=== PATIENT | male | born 1955 | race Caucasian/White ===

== ENCOUNTER 2025-05-25 11:56 | Emergency (ER) | payer MEDICARE, MEDICAID, SELFPAY ==
--- NOTE | 2025-05-25 11:45 | RT.EKG_ITS ---
APPROVED REPORT Exam: Resting ECG Reason for Exam: SOB Patient Location: E HR:86 bpm ECG Measurements Heart Rate 86 AXIS WI 243 P 73 QRSd 76 QRS 56 QT 343 T 211 QTc 411 Conclusion Sinus rhythm...normal P axis, V-rate 60- 99 Prolonged WI interval...WI >220, V-rate 50- 90 Probable left atrial enlargement...P >50mS, <-0.10mV V1 Abnrm T, consider ischemia, anterolateral lds...T <-0.20mV, I aVL V2-V6 No STEMI
[2025-05-25 11:59] VITALS: PULSE 86; RESP 18; TEMP 36.4; O2SAT 95
--- NOTE | 2025-05-25 12:00 | DI.RAD_ITS ---
Exam(s) XR CHEST 2V PA LATERAL EXAM: XR CHEST 2V PA LATERAL CLINICAL HISTORY: SOB TECHNIQUE: 2D digital imaging was performed. Two views. COMPARISON: No exams were available for comparison FINDINGS: HEART: Normal size. Aorta: Not dilated. PULMONARY VASCULATURE: Normal. MEDIASTINUM: Unremarkable. LUNGS: Basilar atelectasis. PLEURAL SPACE: There are small to moderate-sized bilateral pleural effusions. No pneumothorax. Apical pleural thickening. BONE:Unremarkable for age. SOFT TISSUES: Unremarkable. IMPRESSION: Small to moderate-sized bilateral pleural effusions. DATA REPOSITORY: RADIATION DOSE DELIVERED:
[2025-05-25 13:27] LABS: Abs Immature Grans 0.02 10^3/uL (0.0-0.06); HCT 36.5 % (40.0-50.0); HGB 12.1 g/dL (13.5-17.5); Immature Grans % 0.2 %; MCH 34.2 pg (27.0-33.0); MCHC 33.2 % (32.0-36.0); MCV 103 fL (80-95); MPV 8.5 fL (8.0-11.0); Platelet Count 320 10^3/uL (130-400); RBC 3.54 10^6/uL (4.36-5.78); RDW 15.0 % (11.8-14.1); RDW-SD 57.0 fL; WBC 9.54 10^3/uL (4.4-10.8)
[2025-05-25 13:28] LABS: BE (Venous) 10 mmol/L (-2-3); HCO3 (Venous) 35 mmol/L (23-28); O2 Sat (Venous) 54 %; TCO2 (Venous) 33 mmol/L (24-29); pCO2 (Venous) 57 mmHg (41-51); pO2 (Venous) 31 mmHg
[2025-05-25 13:57] LABS: Magnesium 2.1 mg/dL (1.6-2.6); Troponin I 6 ng/L (<54)
[2025-05-25 13:58] LABS: ALT 20 U/L (10-49); AST 35 U/L (<34); Albumin 4.0 g/dL (3.2-5.0); Alkaline Phosphatase 82 U/L (46-116); Anion Gap 8.2 mmol/L (3-11); BUN 15 mg/dL (9-23); Bilirubin, Total 1.20 mg/dL (0.2-1.2); CO2 32.8 mmol/L (20.0-31.0); Calcium 9.3 mg/dL (8.3-10.6); Chloride 94 mmol/L (98-107); Glucose 90 mg/dL (74-106); Potassium 4.5 mmol/L (3.5-5.1); Sodium 135 mmol/L (136-145); Total Protein 8.3 g/dL (5.7-8.2)
--- NOTE | 2025-05-26 21:00 | ED.GENADUL_ITS ---
Discharge Plan Disposition Patient Disposition: [facility] Condition: Fair Discharge Details Clinical Impression: Generalized weakness, Pleural effusion, bilateral Primary Care Provider: Nadine Gonzalez ED Provider: Bg Boogie Discharge Instructions Instructions: Generalized Weakness, Pleural effusion - Discharge instructions Additional Instructions: If you are unhappy at the rehab facility you may discuss with your social worker health services to find other placement. Today there is no indication for hospitalization. Your lab work is reassuring, and your vital signs are all normal. Please follow-up with your primary care provider regarding your visit to the emergency department today. Be sure to discuss results of all test performed here today to include radiology, and laboratory testing as well as results for any pending cultures. Should your symptoms worsen, or if you develop new concerning symptoms, please return immediately emergency department for further evaluation. Discharge Data Discharge Date/Time-TO BE ENTERED AT DEPARTURE: 05/25/25 15:26 HPI General Date/Time Provider Initiated Documentation: 05/25/25 12:05 . HPI Narrative: MDM/Narrative: Initial Assessment: 70-year-old male with squamous cell carcinoma, basal cell carcinoma, and failure to thrive, presents with generalized weakness and dissatisfaction with current rehab facility. Differential Diagnosis: - Metabolic causes: CMP ordered - Infectious causes: CBC/CXR/UA ordered - ACS: EKG/trop ordered ED Course: - Laboratory workup unremarkable - Chest x-ray shows stable bilateral pleural effusions Final Assessment: Generalized weakness persisting for 1 year. Laboratory workup unremarkable. Chest x-ray shows stable bilateral pleural effusions. No significant abnormality noted on workup. Clinical Impression: - Generalized weakness Disposition: - Discharge: Discharged back to rehab facility - Follow-Up: Follow up with social worker health services at [facility] to discuss possible placement in another facility This document was created with assistance from [employer]. . HPI: The patient is a 70-year-old male with a medical history significant for squamous cell carcinoma, basal cell carcinoma, and failure to thrive. He was recently discharged from [facility] due to failure to thrive and generalized weakness and [facility] The patient presents for evaluation of dyspnea. Although he has no acute complaints today, he expresses a desire for hospital admission. He reports persistent weakness and unintentional weight loss over the past year, with no acute changes noted today. ROS: Negative besides as mentioned above Exam: Vital signs: Reviewed. General Appearance: Cachexia. HEENT: NCAT, EOMI, not icteric. External ears normal. No rhinorrhea. Moist mucous membranes. Neck: Supple, full range of motion, no observable masses, No meningeal sign. Respiratory: No Respiratory distress. No tachypnea. Cardiovascular: RRR, no edema. Gastrointestinal: Abdomen soft and nontender. Skin: Multiple skin lesions over anterior chest and forehead. Neurological: Normal Gait, Grossly intact. Psychiatric: Appropriate for situation. Rhythm: NSR Rate: 86 [place]: Normal axis Intervals: Normal intervals Other findings: No acute ST segment or changes to suggest acute ischemia. Nonspecific lateral T wave inversions. Labs: Laboratory Tests Range/Units 05/25/25 13:12 WBC (4.4-10.8) 10^3/uL 9.54 RBC (4.36-5.78) 10^6/uL 3.54 L Hgb (13.5-17.5) g/dL 12.1 L Hct (40.0-50.0) % 36.5 L MCV (80-95) fL 103 H MCH (27.0-33.0) pg 34.2 H MCHC (32.0-36.0) % 33.2 RDW (11.8-14.1) % 15.0 H Plt Count (130-400) 10^3/uL 320 MPV (8.0-11.0) fL 8.5 Immature Gran % % 0.2 Neutrophils % % 78.6 Lymphocytes % % 8.9 Monocytes % % 11.4 Eosinophils % % 0.4 Basophils % % 0.5 Nucleated RBC % (0.0-0.3) % 0.0 Absolute Neutrophils (1.2-6.7) 10^3/uL 7.49 H Absolute Lymphocytes (1.2-3.4) 10^3/uL 0.85 L Absolute Monocytes (0.1-0.8) 10^3/uL 1.09 H Absolute Eosinophils (0.0-0.7) 10^3/uL 0.04 Absolute Basophils (0.0-0.2) 10^3/uL 0.05 VBG pH (7.31-7.41) 7.40 VBG pCO2 (41-51) mmHg 57 H VBG pO2 mmHg 31 VBG HCO3 (23-28) mmol/L 35 H VBG Total CO2 (24-29) mmol/L 33 H VBG O2 Saturation % 54 VBG Base Excess (-2-3) mmol/L 10 H VBG Lactate (<or=2.0) mmol/L 1.7 Sodium (136-145) mmol/L 135 L Potassium (3.5-5.1) mmol/L 4.5 Chloride (98-107) mmol/L 94 L Carbon Dioxide (20.0-31.0) mmol/L 32.8 H Anion Gap (3-11) mmol/L 8.2 BUN (9-23) mg/dL 15 Creatinine (0.73-1.18) mg/dL 0.62 L Est GFR (CKD-EPI 2020) (mL/min/1.73m2) 128.22 Glucose (74-106) mg/dL 90 Calcium (8.3-10.6) mg/dL 9.3 Magnesium (1.6-2.6) mg/dL 2.1 Total Bilirubin (0.2-1.2) mg/dL 1.20 AST (<34) U/L 35 ALT (10-49) U/L 20 Alkaline Phosphatase (46-116) U/L 82 Troponin I (<54) ng/L 6 NT-Pro-B Natriuret Pep (<300) pg/mL 706 H Total Protein (5.7-8.2) g/dL 8.3 H Albumin (3.2-5.0) g/dL 4.0 Radiology: Chest x-ray AP: No acute process, bilateral small to moderate pleural effusions, as read by me. Related Data Allergies Allergy/AdvReac Type Severity Reaction Status Date / Time No Known Allergies Allergy Unverified 05/25/25 12:32 General Stated Complaint: SOB VINOD: 3 Course Vital Signs Vital signs: Vital Signs Temperature 36.4 C 05/25/25 11:59 Pulse 86 05/25/25 11:59 Respiratory Rate 18 05/25/25 11:59 Pulse Oximetry 95 05/25/25 11:59 Temperature 36.4 C 05/25/25 11:59 Temperature Source Temporal Artery Scan 05/25/25 11:59 Pulse 86 05/25/25 11:59 Respiratory Rate 18 05/25/25 11:59 Blood Pressure Position Supine 05/25/25 11:59 Pulse Oximetry 95 05/25/25 11:59 Oxygen Delivery Method Room Air 05/25/25 11:59 Oxygen Flow Rate 0 05/25/25 11:59 Lab/Test Results Lab/Test Results: Laboratory Tests Range/Units 05/25/25 13:12 WBC (4.4-10.8) 10^3/uL 9.54 RBC (4.36-5.78) 10^6/uL 3.54 L Hgb (13.5-17.5) g/dL 12.1 L Hct (40.0-50.0) % 36.5 L MCV (80-95) fL 103 H MCH (27.0-33.0) pg 34.2 H MCHC (32.0-36.0) % 33.2 RDW (11.8-14.1) % 15.0 H Plt Count (130-400) 10^3/uL 320 MPV (8.0-11.0) fL 8.5 Immature Gran % % 0.2 Neutrophils % % 78.6 Lymphocytes % % 8.9 Monocytes % % 11.4 Eosinophils % % 0.4 Basophils % % 0.5 Nucleated RBC % (0.0-0.3) % 0.0 Absolute Neutrophils (1.2-6.7) 10^3/uL 7.49 H Absolute Lymphocytes (1.2-3.4) 10^3/uL 0.85 L Absolute Monocytes (0.1-0.8) 10^3/uL 1.09 H Absolute Eosinophils (0.0-0.7) 10^3/uL 0.04 Absolute Basophils (0.0-0.2) 10^3/uL 0.05 VBG pH (7.31-7.41) 7.40 VBG pCO2 (41-51) mmHg 57 H VBG pO2 mmHg 31 VBG HCO3 (23-28) mmol/L 35 H VBG Total CO2 (24-29) mmol/L 33 H VBG O2 Saturation % 54 VBG Base Excess (-2-3) mmol/L 10 H VBG Lactate (<or=2.0) mmol/L 1.7 Sodium (136-145) mmol/L 135 L Potassium (3.5-5.1) mmol/L 4.5 Chloride (98-107) mmol/L 94 L Carbon Dioxide (20.0-31.0) mmol/L 32.8 H Anion Gap (3-11) mmol/L 8.2 BUN (9-23) mg/dL 15 Creatinine (0.73-1.18) mg/dL 0.62 L Est GFR (CKD-EPI 2020) (mL/min/1.73m2) 128.22 Glucose (74-106) mg/dL 90 Calcium (8.3-10.6) mg/dL 9.3 Magnesium (1.6-2.6) mg/dL 2.1 Total Bilirubin (0.2-1.2) mg/dL 1.20 AST (<34) U/L 35 ALT (10-49) U/L 20 Alkaline Phosphatase (46-116) U/L 82 Troponin I (<54) ng/L 6 NT-Pro-B Natriuret Pep (<300) pg/mL 706 H Total Protein (5.7-8.2) g/dL 8.3 H Albumin (3.2-5.0) g/dL 4.0 PFSH All Active Problems (Updated 05/26/25 @ 21:04 by Bg Boogie MD) Pleural effusion, bilateral (Acute) Generalized weakness (Acute) Social History Smoking risk assessment performed?: No
== END 2025-05-25 15:26 | disposition skilled nursing facility (03) ==
PROVIDERS: Emergency Provider General Practice; PCP Nurse Practitioner Adult Health
DX: J90 Pleural effusion, not elsewhere classified (principal); R53.1 Weakness
CPT/HCPCS: 80053; 82805; 93005; 99284; 71046; 83605; 83735; 83880; 84484; 85025; 93010

== ENCOUNTER → 2025-06-03 13:00 | Outpatient (BNVA) | payer MEDICARE, MEDICAID, SELFPAY | PROVIDERS: PCP Nurse Practitioner Adult Health; Referring Provider Internal Medicine; Visit Provider Physical Therapy Assistant | DX: D48.5 Neoplasm of uncertain behavior of skin (principal) | CPT/HCPCS: 99213 ==